=== PATIENT | male | born 1950 | race Caucasian/White ===

== ENCOUNTER 2020-11-01 17:19 | Outpatient (REF) | payer MEDICARE, SELFPAY | END 2020-11-01 17:20 | disposition home or self-care (01) | LOC: HO.LAB 17:19 | PROVIDERS: Visit Provider Internal Medicine | DX: Z20.822 Contact with and (suspected) exposure to COVID-19 (principal) | CPT/HCPCS: 36415; C9803; U0003 ==

== ENCOUNTER 2020-12-16 11:40 | Outpatient (REF) | payer MEDICARE, SELFPAY | END 2020-12-16 11:41 | disposition home or self-care (01) | LOC: HO.LAB 11:40 | PROVIDERS: Visit Provider Internal Medicine | DX: Z20.822 Contact with and (suspected) exposure to COVID-19 (principal) | CPT/HCPCS: 36415; C9803; U0003; U0005 ==